=== PATIENT | male | born 1950 | race Hispanic/Latino ===

== ENCOUNTER 2023-06-28 10:33 | Day surgery (SDC) | payer MEDICARE ==
[2023-06-28] VITALS (11 sets, daily range): BP systolic 94–130; BP diastolic 53–87; PULSE 40–91; RESP 14–18
[~2023-06-28] VITALS: Ht 167.6 cm; Wt 89.4 kg
[~2023-06-28 10:33] MED LIST: ATOR40TA71 PO; CARV6.25 PO; CHOL200079 PO; CLOP-31 PO; DOCU100T PO; OLME-9 PO; RANO10005 PO; SILO8CAP6 PO
[2023-06-28] MEDS ORDERED: 0.9%NACL 1000ML 1,000 ML IV ONE (10:42)
[2023-06-28] MEDS ORDERED: PROPOFOL 10 MG/ML 20ML VIAL IV ONE (11:53)
== END 2023-06-28 12:25 | disposition home or self-care (01) ==
LOC: ENDO 10:33 → DAH 10:33 → ENDO 12:25
PROVIDERS: ATTEND Internal Medicine Gastroenterology
DX: K92.1 Melena (principal); D50.9 Iron deficiency anemia, unspecified; K59.04 Chronic idiopathic constipation; K63.5 Polyp of colon; K56.2 Volvulus; I11.9 Hypertensive heart disease without heart failure; E11.8 Type 2 diabetes mellitus with unspecified complications; I25.10 Atherosclerotic heart disease of native coronary artery without angina pectoris; E78.5 Hyperlipidemia, unspecified; F41.9 Anxiety disorder, unspecified; F32.A Depression, unspecified; Z79.899 Other long term (current) drug therapy; Z95.5 Presence of coronary angioplasty implant and graft; Z86.16 Personal history of COVID-19; Z90.49 Acquired absence of other specified parts of digestive tract; Z86.010 Personal history of colon polyps
CPT/HCPCS: 82948 ×2; 45380; J7030 ×2; J2704; A4620; A4215 ×2; A4223; A7002; A4222; A4221; A4663; A4216; A4606; J3490